=== PATIENT | male | born 1965 | race Caucasian/White ===

== ENCOUNTER 2016-12-31 23:39 | Emergency (ER) | payer OTHER ==
[2017-01-01 00:05] VITALS: BP 130/82; PULSE 65; TEMP 97.6; BMI 23.8
[2017-01-01] MEDS ORDERED: IBUPROFEN 400 MG TABLET (FP) PO ONE ×2 (00:16→00:22)
[2017-01-01] MEDS ORDERED: CYCLOBENZAPRINE HCL 10 MG TABLET (FP) PO ONE (00:16)
--- NOTE | 2017-01-01 00:18 | PDOC ---
[id number] No Limitations - History of Present Illness Initial Comments: 01/01/17 00:50 The patient is a 51 year old male with significant past medical history of chronic back pain on tramadol 50mg BID who presents to the ED for few days of insomnia. Patient reports he went on a road trip to [place] and due to the severe back pain from sitting, he took more tramadol than usual. He also states while in [place], he had got a fish hook caught in his leg, thus making him take ibuprofen and tramadol. Patient states he ran out of his tramadol and is due for another prescription refill by his pain managment doctor on January 13. He reports for the past few days since he has not been taking his tramadol, he has not been able to sleep due to feeling tremulous and akathisia. Denies palpitations, bladder/bowel incontinence, or saddle anesthesia. The patient denies fever, chills, cough, SOB, and chest pain. The patient denies abdominal pain, nausea, vomiting, and diarrhea. Allergies: NKDA Social History: Current smoker (PPD). No alcohol or drug use reported. Past Surgical History: Appendectomy PCP: Dr. Jacob Turner <Milly Mcmillan - Last Filed: 01/01/17 00:50> <Jonathan Uriarte - Last Filed: 01/01/17 02:44> - General Chief Complaint: Back Pain Stated Complaint: INSOMNIA Past History <Milly Mcmillan - Last Filed: 01/01/17 00:50> - Past Medical History Suicide Attempt (Hx): No Other medical history: Pt denies - Surgical History Appendectomy: Yes - Psycho/Social/Smoking Cessation Hx Anxiety: Yes Suicidal Ideation: No Smoking Status: No Smoking History: Never smoked Have you smoked in the past 12 months: Yes Number of Cigarettes Smoked Daily: 0 'Breaking Loose' booklet given: 10/03/13 Hx Alcohol Use: No Drug/Substance Use Hx: No Substance Use Type: None <Jonathan Uriarte - Last Filed: 01/01/17 02:44> - Past Medical History Allergies/Adverse Reactions: Allergies Allergy/AdvReac Type Severity Reaction Status Date / Time No Known Allergies Allergy Verified 01/01/17 00:04 Home Medications: Ambulatory Orders Tramadol HCl 50 mg PO BID 04/19/17 Tramadol HCl [Ultram] 50 mg PO BID PRN #10 tablet MDD 2 01/01/17 Review of Systems - Review of Systems Able to Perform ROS?: Yes Comments:: 01/01/17 00:51 GENERAL/CONSTITUTIONAL: No fever or chills. No weakness. HEAD, EYES, EARS, NOSE AND THROAT: No change in vision. No ear pain or discharge. No sore throat. CARDIOVASCULAR: No chest pain or shortness of breath. RESPIRATORY: No cough, wheezing, or hemoptysis. GASTROINTESTINAL: No nausea, vomiting, diarrhea or constipation. GENITOURINARY: No dysuria, frequency, or change in urination. MUSCULOSKELETAL: +chronic back pain No joint or muscle swelling or pain. No neck pain. SKIN: No rash NEUROLOGIC: +tremulous, akathisia, insomnia No headache, vertigo, loss of consciousness, or change in strength/sensation. ENDOCRINE: No increased thirst. No abnormal weight change. HEMATOLOGIC/LYMPHATIC: No anemia, easy bleeding, or history of blood clots. ALLERGIC/IMMUNOLOGIC: No hives or skin allergy. <Milly Mcmillan - Last Filed: 01/01/17 00:50> *Physical Exam - Vital Signs Last Vital Signs Temp Pulse Resp BP Pulse Ox 97.6 F 65 18 130/82 98 01/01/17 00:01 01/01/17 00:01 01/01/17 00:01 01/01/17 00:01 01/01/17 00:01 - Physical Exam Comments: 01/01/17 00:51 GENERAL: Awake, alert, and fully oriented, in no acute distress HEAD: No signs of trauma EYES: PERRLA, EOMI, sclera anicteric, conjunctiva clear ENT: Auricles normal inspection, hearing grossly normal, nares patent, oropharynx clear without exudates. Moist mucosa NECK: Normal ROM, supple, no lymphadenopathy, JVD, or masses LUNGS: Breath sounds equal, clear to auscultation bilaterally. No wheezes, and no crackles HEART: Regular rate and rhythm, normal S1 and S2, no murmurs, rubs or gallops ABDOMEN: Soft, nontender, normoactive bowel sounds. No guarding, no rebound. No masses EXTREMITIES: Normal range of motion, no edema. No clubbing or cyanosis. No cords, erythema, or tenderness NEUROLOGICAL: Cranial nerves II through XII grossly intact. Normal speech, normal gait SKIN: Warm, Dry, normal turgor, no rashes or lesions noted. <Milly Mcmillan - Last Filed: 01/01/17 00:50> - Vital Signs Last Vital Signs Temp Pulse Resp BP Pulse Ox 97.6 F 65 18 130/82 98 01/01/17 00:01 01/01/17 00:01 01/01/17 00:01 01/01/17 00:01 01/01/17 00:01 <Jonathan Uriarte - Last Filed: 01/01/17 02:44> ED Treatment Course - Medications Given in the ED: ED Medications Discontinued Medications Generic Name Dose Route Start Last Admin Trade Name Delma PRN Reason Stop Dose Admin Cyclobenzaprine HCl 10 mg 01/01/17 00:16 01/01/17 00:29 Flexeril - PO 01/01/17 00:17 Not Given ONCE ONE Ibuprofen 800 mg 01/01/17 00:16 01/01/17 00:29 Motrin - PO 01/01/17 00:17 Not Given ONCE ONE Tramadol HCl 50 mg 01/01/17 00:34 01/01/17 00:43 Ultram - PO 01/01/17 00:35 50 mg ONCE ONE Administration <Milly Mcmillan - Last Filed: 01/01/17 00:50> Medical Decision Making - Medical Decision Making 01/01/17 02:39 This is a 51yo m with likely mild withdrawal symptoms related to chronic usage of tramadol; he has run out of medication and is now experiencing not only breakthrough back pain but also significant akisthesia; I will give him tramadol and will encourage him to follow up with the PMD within the next 24 hours; I have also encouraged the patient to curtail the use. <Jonathan Uriarte - Last Filed: 01/01/17 02:44> *DC/Admit/Observation/Transfer - Attestations Scribe Attestion: 01/01/17 00:51 Documentation prepared by Milly Mcmillan, acting as senior medical writer for Jonathan Uriarte MD, <Milly Mcmillan - Last Filed: 01/01/17 00:50> - Discharge Dispostion Admit: No Decision to Admit order Date/Time: 01/01/17 00:39 - Attestations Physician Attestion: 01/01/17 02:44 I, Dr. Jonathan Uriarte MD, attest that this document has been prepared under my direction and personally reviewed by me in its entirety. I further attest, that it accurately reflects all work, treatment, procedures and medical decision -making performed by me. <Jonathan Uriarte - Last Filed: 01/01/17 02:44> Diagnosis at time of Disposition: Back pain Qualifiers: Back pain location: low back pain Chronicity: chronic Back pain laterality: bilateral Sciatica presence: unspecified whether sciatica present Qualified Code (s): M54.5 - Low back pain Drug withdrawal Qualifiers: Substance type: sedative, hypnotic or anxiolytic Qualified Code(s): F13.239 - Sedative, hypnotic or anxiolytic dependence with withdrawal, unspecified - Discharge Dispostion Disposition: HOME Condition at time of disposition: Good - Prescriptions Prescriptions: Tramadol HCl [Ultram] 50 mg PO BID PRN #10 tablet MDD 2 PRN Reason: Pain - Referrals Referrals: Nusrat Henao MD [Primary Care Provider] - - Patient Instructions Additional Instructions: Please follow up with your PMD within the next 48 hours and if there is any change in your symptoms otherwise, please return immediately to the ED.
[2017-01-01] MEDS ORDERED: CYCLOBENZAPRINE HCL 10 MG TABLET (FP) ONE (00:22)
[2017-01-01] MEDS ORDERED: traMADol HCL 50 MG TABLET PO ONE (00:34)
[2017-01-01] MEDS ORDERED: traMADol HCL 50 MG TABLET ONE (00:41)
== END 2017-01-01 00:53 | disposition home or self-care (01) ==
LOC: JER 23:39
DX: F13.230 Sedative, hypnotic or anxiolytic dependence with withdrawal, uncomplicated (principal)
CPT/HCPCS: 99281-25